=== PATIENT | female | born 1955 | race Caucasian/White ===

== ENCOUNTER 2022-09-18 12:50 | Outpatient (CLI) | payer MEDICARE, SELFPAY ==
--- NOTE | ~2022-09-18 | US_ITS ---
EXAMINATION: US venous doppler [facility] DATE: 09/18/2022 13:36 INDICATION: Lower limb swelling. TECHNIQUE: Grayscale ultrasound images without and with compression and Doppler ultrasound images of the bilateral lower extremity veins were obtained. COMPARISON: None. FINDINGS: The visualized portions of right common femoral vein, profunda (deep) femoral vein, femoral vein, pop liteal vein, peroneal veins, posterior tibial veins, and greater saphenous vein outflow are patent. The visualized portions of left common femoral vein, profunda femoral vein, femoral vein, popliteal v ein, peroneal veins, posterior tibial veins, and greater saphenous vein outflow are patent. IMPRESSION: 1. No deep venous thrombosis. Reviewed, dictated and finalized at location B.
== END 2022-09-18 12:51 | disposition home or self-care (01) ==
LOC: ANHIMG 12:57
PROVIDERS: PCP Nurse Practitioner Family; Visit Provider Internal Medicine Cardiovascular Disease
DX: M79.89 Other specified soft tissue disorders (principal); R60.9 Edema, unspecified; I89.0 Lymphedema, not elsewhere classified
CPT/HCPCS: 93970

== ENCOUNTER 2024-11-09 08:43 | Outpatient (CLI) | payer MEDICARE, SELFPAY ==
--- NOTE | 2024-12-06 11:47 | P.SLEEP_ITS ---
Sleep Study Date of Study: 11/09/24 Ordering Provider: Kameron Rea MD Interpreting Physician: Mulu Espino DO Sleep Study Type: Split Polysomnogram Height: 1.6 m Weight: 94.347 kg Body Mass Index: 36.8 Neck Circumference (inches): 16 [place]: 1 Reason for Sleep Study Suspicion for MARQUITA based on cardiac dysfunction Sleep History The patient is a 69-year-old female that had a sleep study ordered by her superintendent automotive for evaluation of sleep apnea. The patient rarely awakens from sleep short of breath. She frequently awakens at night with heartburn, belching or cough. She frequently snores but is rarely loud enough that others. She rarely has trouble sleeping when she has a cold. She denies waking up gasping for air throughout the night. She denies having breathing problems at night observed by herself or others. She occasionally sweats excessively at night. She frequently has heart palpitations or irregular heartbeats during the night. She rarely falls asleep during the day. She denies falling asleep while driving. She denies sleep paralysis, cataplexy and hypnagogic / hypnopompic hallucinations. She denies having trouble at school or work due to sleepiness. She denies feeling afraid of going to sleep. She denies having nightmares. She rarely remembers her dreams. She rarely has thoughts racing through her mind. She rarely feels sad or depressed. She occasionally has anxiety. She rarely has muscular tension. She denies noticing parts of her body jerk. She rarely kicks during the night. She denies having crawling and aching feelings in her legs and denies having leg pain during the night. She is constantly grinds her teeth during sleep but never awakens with morning jaw pain. She denies being bothered by pain during the day and denies being awakened by pain during the night. She rarely wakes up feeling stiff in the morning. She rarely wakes up with sore or achy muscles. She denies waking up with pain in the neck, spine and other joints. She goes to bed at 9:30 p.m. on weekdays and at 10:00 p.m. on the weekends. It sometimes takes her a long time to fall asleep. She wakes up twice throughout the night to urinate and is able to fall back asleep within 20-30 minutes. She wakes up at 4:30 a.m. on weekdays and at 6:00 a.m. on the weekends. She typically gets 8 hours of sleep per night. She will stay in bed for 10 minutes after waking up in the morning. She currently lives alone. She denies consuming any caffeinated beverages within 2 hours of bedtime. She denies engaging in physical exercise before bedtime. She will watch television before falling asleep. She denies taking naps in the afternoon or the evening. She consumes 2 caffeinated beverages per day. She denies tobacco, alcohol and recreational drug use. Sleep Procedure A full night split study using the Pressi multi-channel system recorded the standard physiologic parameters including EEG, EOG, submentalis EM G, anterior tibialis EMG, EKG, body position, nasal and oral airflow using nasal pressure sensor and thermistor.? Respiratory parameters of chest and abdominal movements were recorded with Respiratory Inductance Plethysmography belts. Oxygen saturation was recorded by pulse oximetry. Video monitoring was also performed. Sleep stages, periodic limb movements, and EEG arousals were scored in 30 second epochs according to the criteria of the AASM Scoring Manual. The Apnea-Hypopnea Index was calculated using CMS guidelines for definition of hypopnea with 4% O2 desaturations while scoring respiratory events. Sleep Architecture During the diagnostic portion of the study, the total recording time was 185.2 minutes. The total sleep time was 125.5 minutes. Sleep latency was 42.7 minutes.? REM sleep was not achieved during this portion of the study. Sleep Efficiency was 67.8%. The patient had 6 awakenings for an awakening index of 2.9. Wake after sleep onset time was 17.0 minutes. The patient spent 13.5 minutes, 10.8% of total sleep time in Stage N1. The patient spent 111.5 minutes, 88.8% in Stage N2. The patient spent 0.5 minutes, 0.4% in Stage N3. The patient spent 0.0 minutes, 0.0% in Stage REM sleep. At 12:48:50 AM the patient was placed on PAP treatment and was titrated at pressures ranging from 5 cm H20 up to 7 cm H20 with EPR of 2. During the treatment portion of the study, the total recording time was 288.2 minutes.? The total sleep time was 127.0 minutes. Sleep latency was 103.5 minutes. REM latency was 173.0 minutes. Sleep Efficiency was 44.1%. Wake after Sleep Onset time was 57.5 minutes. The patient spent 11.0 minutes, 8.7% of total sleep time in Stage N1. The patient spent 105.5 minutes, 83.1% in Stage N2. The patient spent 0.0 minutes, 0.0% in Stage N3. The patient spent 10.5 minutes, 8.3% in Stage REM. Respiratory Analysis During the diagnostic portion of the study, the patient had 10 hypopneas and 1 mixed apnea for an overall Apnea Hypopnea Index of 5.3 events per hour. The REM Apnea Hypopnea Index was 0. The NREM Apnea Hypopnea Index was 5.3. The patient h ad a Central Apnea Hypopnea Index of 0. There was no evidence of Heriberto-Sarah Respirations. During the treatment portion of the study, the patient had no respiratory events for an overall Apnea Hypopnea Index of 0 events per hour. The REM Apnea Hypopnea Index was 0. The NREM Apnea Hypopnea Index was 0. The patient had a Central Apnea Hypopnea Index of 0. There was no evidence of Heriberto-Sarah Respirations. The patient was started on CPAP 5 cm H2O and titrated to CPAP 7 cm H2O with EPR of 2. The patient was able to fall asleep starting on CPAP 7 cm H2O. The patient was able to achieve REM sleep starting on CPAP 7 cm H2O with EPR of 2. The patient was able to achieve a residual AHI less than 5 with both NREM and REM sleep on the final pressure setting. On CPAP 7 cm H2O with EPR of 2, the patient spent 53 minutes in NREM and 10.5 minutes in REM with no respiratory events, resulting in an AHI of 0. The patient had a sleep efficiency of 75.6% on this pressure setting. Arousals During the diagnostic portion of the study, there were a total of 28 arousals for an arousal index of 13.4.? There were 3 respiratory arousals for an index of 1.4. There were 3 periodic limb movement arousals for an index of 1.4.? There were 1 isolated limb movement arousal for an index of 0.5. There were 21 spontaneous arousals for an index of 10.0. During the treatment portion of the study, there were a total of 21 arousals for an index of 9.9.? There were 0 respiratory arousals for an index of 0. There were 8 periodic limb movement arousals for an index of 3.8.? There were 0 isolated limb movement arousals for an index of 0. There were 13 spontaneous arousals for an index of 6.1. Periodic Limb Movements During the diagnostic portion of the study, the patient had 13 isolated limb movements with an index of 6.2. The patient had 26 periodic limb movements with an index of 12.4. The patient had a total of 39 limb movements with a total limb movement index of 18.6. During the treatment portion of the study, the patient had 9 isolated limb movements with an index of 4.3. The patient had 83 periodic limb movements with an index of 39.2, which is elevated (normal < 15). The patient had a total of 92 limb movements with a total limb movement index of 43.5. Oximetry Data During the diagnostic portion of the study, the patient had an average oxygen saturation of 94.9% in wake with a minimum oxygen saturation of 83% and a maximum oxygen saturation of 98%. The patient had an average oxygen saturation of 92.2% in sleep with a minimum oxygen saturation of 87.0% and a maximum oxygen saturation of 98.0%. The patient had 37 oxygen desaturations resulting in an Oxygen Desaturation Index of 18.2. The patient spent 0.8 minutes, 0.5% of total sleep time with an oxygen saturation less than 88%. During the treatment portion of the study, the patient had an average oxygen saturation of 96.2% in wake with a minimum oxygen saturation of 92.0% and a maximum oxygen saturation of 99.0%. The patient had an average oxygen saturation of 93.8% in sleep with a minimum oxygen saturation of 90.0% and a maximum oxygen saturation of 98.0%. The patient had 15 oxygen desaturations resulting in an Oxygen Desaturation Index of 7.1. The patient spent 0 minutes of total sleep time with an oxygen saturation less than 88%. Snoring Profile Mild snoring was present in the baseline portion of the study. Cardiac Profile The EKG lead showed normal sinus rhythm with occasional PVCs. During the diagnostic portion of the study, the average pulse rate was 80.9 bpm.? The minimum pulse rate was 74.0 bpm. The maximum pulse rate was 89.0 bpm. During the treatment portion of the study, the average pulse rate was 82.1 bpm.? The minimum pulse rate was 75.0 bpm. The maximum pulse rate was 91.0 bpm. EEG Profile No signs of seizure activity seen. Assessment and Plan Assessment and Plan (1) MARQUITA (obstructive sleep apnea): Code(s): G47.33 - Obstructive sleep apnea (adult) (pediatric) Status: Acute Assessment and Plan: In the baseline portion of the study, the patient had an overall AHI of 5.3 with desaturation down to 87%. This is consistent with mild sleep apnea. The patient was started on CPAP 5 cm H2O and titrated to CPAP 7 cm H2O with EPR of 2. The p atient's sleep apnea resolved on the final pressure setting. I recommend that the patient be prescribed CPAP 7 cm H2O with EPR of 2, size medium Resmed AirTouch F20 full face mask, CPAP filters/tubing and heated humidity. This should be used with all episodes of sleep.? Compliance should be reviewed within 31-90 days of starting therapy for usage greater than 4 hours per night greater than 70% of the nights. The patient should be asked about symptoms such as?excessive daytime sleepiness, quality of sleep, decreased nocturia, increased?mental functioning such as memory, mood, and concentration. Data The data obtained during this sleep study is adequate for interpretation. Certification This sleep study has been reviewed by a board certified sleep medicine physician.
[2024-12-06 11:48] VITALS: BMI 36.8
== END 2024-11-10 07:01 | disposition home or self-care (01) ==
LOC: ANHCSM 08:44
PROVIDERS: PCP Nurse Practitioner Family; Visit Provider Internal Medicine Cardiovascular Disease
DX: G47.33 Obstructive sleep apnea (adult) (pediatric) (principal)
CPT/HCPCS: 95811

== ENCOUNTER 2025-03-31 15:34 | Outpatient (CLI) | payer MEDICARE, SELFPAY ==
--- NOTE | ~2025-03-31 | MM_ITS ---
EXAMINATION: MM screening tiffanie BI w micah HISTORY: Screening TECHNIQUE: Craniocaudal and mediolateral oblique 3-D tomosynthesis images were obtained and synthetic 2-D images were generated. CAD analysis was submitted and interpreted. COMPARISON: Comparison to multiple prior studies sequentially, with oldest reviewed study dated 08/31. BREAST PARENCHYMAL COMPOSITION: Not dense: There are scattered areas of fibroglandular density. FINDINGS: There is no evidence of suspicious mass, calcification, or architectural distortion to sugg est malignancy in either breast. There has been no suspicious interval change. IMPRESSION: 1. No mammographic evidence of malignancy. 2. Recommend routine screening mammography in one year. BI-RADS Category 1: Negative Reviewed, dictated and finalized at location A.
--- OUTSIDE RECORDS SUMMARY | 2025-03-31 15:51 | XMS_ITS | Clinical Summary ---
Author Organization [facility] [place] [address] Address [address] [place] [address] Care Team Providers Care Drywaller Name Role Phone Fab Marelle Mckenna ADJUSTER Primary Care Provider + Allergies No known active allergies Medications amitriptyline (ELAVIL) 50 mg tablet amitriptyline 50 mg tablet TAKE 1 TABLET BY MOUTH EVERY DAY 0 Active rosuvastatin (CRESTOR) 10 mg tablet rosuvastatin 10 mg tablet TAKE 1 TABLET BY MOUTH EVERY DAY 0 Active escitalopram (LEXAPRO) 10 mg tablet Take 1 tablet (10 mg total) by mouth daily 3 Active aspirin 81 mg enteric coated tablet Take 1 tablet (81 mg total) by mouth daily 4 Active sacubitriL-janine sartan (ENTRESTO) 97-103 mg tabletIndicati ons:chronic heart failure Take 1 tablet by mouth 2 (two) times a day 60 tablet 11 4 Active furosemide (LASIX) 40 mg tablet Take 1 tablet (40 mg total) by mouth daily 30 tablet 11 4 09/01/20 25 Active hydrALAZINE (APRESOLINE) 50 mg tabletIndicati ons:hypertensi on Take 1 tablet (50 mg total) by mouth 3 (three) times a day 90 tablet 11 4 09/01/20 25 Active omeprazole (PriLOSEC) 40 mg capsule Take 1 capsule (40 mg total) by mouth daily Active ivabradine (CORLANOR) 7.5 mg tablet Take 1 tablet (7.5 mg total) by mouth 2 (two) times a day 60 tablet 1 4 Active empagliflozin (Jardiance) 10 mg tablet TAKE 1 TABLET BY MOUTH EVERY DAY 30 tablet 10 4 Active metFORMIN XR (GLUCOPHAGE XR) 500 mg 24 hr tablet Take 1 tablet (500 mg total) by mouth daily 4 Active Ozempic 1 mg/dose (4 mg/3 mL) pen injector injection 4 Active dilTIAZem CD/XR/XT (CARDIZEM CD,DILACOR XR) 240 mg 24 hr capsule Take 1 capsule (240 mg total) by mouth daily 90 capsule 6 4 10/27/20 25 Active carvediloL (COREG) 25 mg tablet TAKE 1 TABLET BY MOUTH TWICE A DAY WITH FOOD 180 tablet 2 5 Active spironolactone (ALDACTONE) 25 mg tablet TAKE 1 TABLET (25 MG TOTAL) BY MOUTH DAILY. 90 tablet 2 5 01/04/20 26 Active Active Problems Problem Noted Date Diagnosed Date Inappropriate sinus tachycardia 09/29/2024 Primary hypertension 09/29/2024 Coronary artery disease invo lving [place] coronary artery of [place] heart without angina pectoris 09/29/2024 Morbid obesity 09/29/2024 Encounters Date Type Department Care Team Description 02/17/2025 Telephone [facility] Cardiology [address] [facility] [address] [place] [address] Kameron Rea MD from Last 3 Months Medical History Medical History Date Comments Hyperlipidemia Hypertension GERD (gastroesophageal reflux disease) Family History Medical History Relation Name Comments Cancer Other Hyperlipidemia Other Relation Name Status Comments Father Mother Other Social History Tobacco Use Types Packs/Day Years Used Date Smoking Tobacco: Never Tobacco Cessation:Counseling Given: Not Answered Comments Unknown Sex and Gender Information Value Date Recorded Sex Assigned at Not on file Legal Sex Female 12:22 AM DESPATCH CLERK Gender Identity Not on file Sexual Orientation Not on file Obstetrics History Last Filed Vital Signs Vital Sign Reading Time Taken Comments Blood Pressure 138/70 10/27/2024 10:19 AM DESPATCH CLERK Pulse 104 10/27/2024 10:19 AM DESPATCH CLERK Temperature - - Respiratory Rate - - Oxygen Saturation 96% 10/27/2024 10:19 AM DESPATCH CLERK Inhaled Oxygen Concentration - - Weight 95.8 kg (211 lb 1.6 oz) 10/27/2024 10:19 AM DESPATCH CLERK Height 160 cm (5' 3 ) 10/27/2024 10:19 AM DESPATCH CLERK Body Mass Index 37.39 10/27/2024 10:19 AM DESPATCH CLERK Plan of Treatment Health Maintenance Due Date Last Done Comments Albumin Creatinine Ratio, Urine 1956 Breast Cancer Screening-Mammogram 1956 Colon Cancer Screening-Colonoscopy 1956 Depression Screening 1956 Fall Risk Assessment 1956 Hemoglobin A1C 1956 Hepatitis C Screening 1956 Osteoporosis Screening-Bone Density Scan 1956 Dilated Eye Exam 1956 Foot Exam 1956 Hepatitis B Screening 02/02/1974 Well Visit 65+ 02/02/2021 Influenza Vaccine (#1) 2024 3, 09/24/2022, 09/21/2022, Additional history exists Lipid Panel 11/12/2024 11/12/2023, 11/12/2021 eGFR 11/27/2024 11/27/2023 DTaP/Tdap/Td Vaccine (3 - Tdap) 11/22/2031 , 06/05/2011 Zoster Vaccine Completed 05/14/2023, 01/29, 02/06/2016 Pneumococcal vaccine 65+ Completed 08/19/2023, 09/01 Procedures Procedure Name Priority Date/Time Associated Diagnosis Comments COMPREHENSIVE METABOLIC PANEL Routine 11/27/2023 Swelling of both lower extremities POCT LIPID PANEL Routine 11/12/2023 1:37 PM DESPATCH CLERK Lipid screening from Last 3 Months or Most Recently Relevant to Health Maintenance Results * (ABNORMAL) Comprehensive metabolic panel (11/27/2023) SCRIBED Sodium 140 137 - 145 mmol/L EXTERNAL LAB SCRIBED Potassium 4.0 3.5 - 5.1 mmol/L EXTERNAL LAB SCRIBED Chloride 100(A) 137 - 145 mmol/L EXTERNAL LAB SCRIBED Carbon Dioxide 32(A) 22 - 30 mmol/L EXTERNAL LAB SCRIBED Anion Gap 12.0(A) 14 - 22 mmol/L EXTERNAL LAB SCRIBED Urea Nitrogen (BUN) 15 8 - 19 mg/dl EXTERNAL LAB SCRIBED Creatinine 1.20 0.66 - 1.25 mg/dl EXTERNAL LAB SCRIBED Glucose 111(A) 70 - 99 mg/dl EXTERNAL LAB SCRIBED Calcium 10.0 8.4 - 10.2 mg/dl EXTERNAL LAB SCRIBED Bilirubin 0.60 0.20 - 1.30 mg/dl EXTERNAL LAB SCRIBED Plasma Protein 8.1 6.3 - 8.2 g/dl EXTERNAL LAB SCRIBED Albumin 4.7(A) 3.0 - 4.4 g/dl EXTERNAL LAB SCRIBED Alkaline Phosphatase 103 38 - 126 Units/L EXTERNAL LAB SCRIBED Alanine Transaminase (ALT) 13 0 - 35 Units/L EXTERNAL LAB SCRIBED Aspartate Transaminase (AST) 21 15 - 37 Units/L EXTERNAL LAB SCRIBED eGFR in 0 0 - 0 EXTERNAL LAB SCRIBED eGFR in NonAfrican [place]ian 45 45 - 45 EXTERNAL LAB Blood 11/27/2023 Kameron Rea MD LAB BLOOD ORDERABLES Final Resul t EXTERNAL LAB * POCT lipid panel (11/12/2023 1:37 PM DESPATCH CLERK) Cholesterol, POC 212 mg/dL HDL, POC 46 mg/dL Triglycerides, POC 185 mg/dL LDL Cholesterol POC 129 mg/dL Chol/HDL Ratio, POC 2.8 Non-HDL Cholesterol, POC 166 mg/dL Cholesterol Total, POC 212 mg/dL Capillary blood 11/12/2023 1 :37 PM DESPATCH CLERK Kameron Rea MD POINT OF CARE TEST ORDERABLES Fi nal Result from Last 3 Months or Most Recently Relevant to Health Maintenance Insurance MEDICARE MEDICARE [employer] SENIOR [facility] MEDICARE Care Teams Drywaller Relationship Specialty Start Date End Date Carrol Mar NP PCP - General Nurse Practitioner 06/18/22
--- OUTSIDE RECORDS SUMMARY | 2025-03-31 15:51 | XMS_ITS | CONTINUITY OF CARE DOCUMENT ---
Author Name cody, cody Address Unknown Organization [facility] Address [address] [place] [address] Phone [phone] Care Team Providers Care Sales Representative Leather Goods Name Role Phone Melo MENDOZA, Patt Unavailable [phone] Zaid TAB CUTTER-BC, Carrol Morgan Unavailable Zaid TAB CUTTER-BC, Carrol Cathy Unavailable [phone] PROBLEMS Condition Status Date Provider Notes Hyperlipidemia active Patt Alejo MD HYPERTENSION active Patt Alejo MD Ankle Edema, left > right active Patt alexis MD Abnormal EKG active Patt Alejo MD Cataract active Patt Alejo MD Cardiology examination active Patt cohen MD ENCOUNTERS Date Type Provider Location Encounter Diag nosis 1 - 8 In-person encounter Office Visit Patt Alejo MD [place] [facility] Cardiology examinationCataractAbnormal EKGAnkle Edema, left > rightHYPERTENSIONHyperlipidemia VITAL SIGNS Date Observation Value Provider Body Mass Index (Ratio) 37.05 kg/m2 Jose Alejo MD blood pressure, diastolic 113 mm[Hg] Fabiola nkLogic blood pressure, systolic 188 mm[Hg] Jennifer kLogic blood pressure, cuff size large Ta cem Adams blood pressure, diastolic 113 mm[Hg] Jose Adams blood pressure, systolic 188 mm[Hg] Aurelio Adams oxygen saturation, oximetry 95 % Alexandra Aadms respiratory rate E&M 20 /min Alexandra Adams pulse rate 111 /min Alexandra Adams weight E&M 209.2 [lb_av] Alexandra Adams height E&M 63 [in_i] Alexandra Adams HISTORY OF MEDICATION USE Medication Status Instructions Dates Provider Indications Com ments furosemide 20 mg tablet active TAKE 1 TABLET BY MOUTH TWICE DAILY Patt Alejo MD benazepril 40 mg tablet active Take 1 tablet by mouth twice a day Patt Alejo MD amitriptyline 50 mg tablet active 1 once a day Patt Alejo MD amlodipine 10 mg tablet active 1 once a day Patt Alejo MD atenolol 50 mg tablet active 1 once a day Patt Alejo MD rosuvastatin 10 mg tablet active 1 once a day Patt Alejo MD SOCIAL HISTORY Date Observation Value Provider social history reviewed E&M revi ewed - no changes required Patt Alejo MD social history E&M S moking History: P azael has never smoked. Patt Alejo MD INSURANCE PROVIDERS Payer name Policy type / Coverage type [place] [employer] party ID [employer] Commercial insurance compan y [employer]IOR [employer] Other [id number] [place] MEDICARE Medicare [id number] ADVANCE DIRECTIVES Name Date DISCUSSED - NO DECISION MADE TREATMENT PLAN Date Name Performer [id number],S, Patt art MD [id number],C,On statin. Edward Alejo MD [id number],C,P t is planned to undergo cataract surgery. L edema, no other symptoms. Clinical examination, apart from cataract, was unremarkable. The EKG done today showed sinus tachycardia. She is to undergo echocardiogram, if the EF and wall motion is normal we will clear her for surgery. Patt Alejo MD [id number],C,S he is on benazepril, amlodipine, and atenolol. Patt Alejo MD Cardiology Patt Lagos Cardiology:On statin. Patt alexis MD Cardiology:Pt is merced nned to undergo cataract surgery. L edema, no other symptoms. Clinical examination, apart from cataract, was unremarkable. The EKG done today showed sinus tachycardia. She is to undergo echocardiogram, if the EF and wall motion is normal we will clear her for surgery. Patt Alejo MD Cardiology:She is on benazepril, amlodipine, and atenolol. Ptat Alejo MD Date Name Complete Echo Complete Echo HISTORY OF PROCEDURES Procedure Date Procedure Name Provider Procedure Notes S tatus EKG Patt Alejo MD complet ed
--- OUTSIDE RECORDS SUMMARY | 2025-03-31 15:51 | XMS_ITS | Encounter Summary ---
Author Organization [facility] Healthcare Address [address] [place] [address] Care Team Providers Care Licensed Plumber Name Role Phone Carrol Mar NAME PLATE STAMPER Primary Care Provider + Encounter Details Date Type Department Care Team (Late st Contact Info) Description 11/09/2024 Orders Only [facility] [place] [facility] Information Management [address] [place] [id number] Kameron Rea MD [address] [id number] Social History Tobacco Use Types Packs/Day Years Used Date Smoking Tobacco: Never Comments Unknown Sex and Gender Information Value Date Recorded Sex Assigned at Not on file Legal Sex Female 12:22 AM CLINICAL SUPPORT SPECIALIST Gender Identity Not on file Sexual Orientation Not on file documented as of this encounter Plan of Treatment Not on file documented as of this encounter Procedures Procedure Name Priority Date/Time Associated Diagnosis Comments SLEEP LAB/STUDY - RESULT 11/09/2024 documented in this encounter Results * SLEEP LAB/STUDY - RESULT (11/09/2024) Kameron Rea MD Edited Result - Final documented in this encounter Visit Diagnoses Not on filedocumented in this encounter Care Teams Licensed Plumber Relationship Specialty Start Date End Date Carrol Mar NP PCP - General Nurse Practitioner 06/18/22 documented as of this encounter
--- OUTSIDE RECORDS SUMMARY | 2025-03-31 15:51 | XMS_ITS | Data Portability ---
Author Organization [facility] [employer], Main Office Address [address] [place] [address] Care Team Providers Care Radio Frequency Design Engineer Name Role Phone RAJNI THOMPSON Primary Care Provider [phone] Assessment No assessment recorded. Plan of Treatment Reminders Order Date Submit Date Provider Last Modified By Organization Details Last Modified Time Details Appointments Follow Up 15 2024 10:15A FIDELINA Nascimento Not available Not available Not available Lab hemoglob in A1C, fingerst ick 2024 025 [facility], [address] [place] [address], [address], 03/24/2025 12:01:26 TSH, serum, reflex free T4 [email or web address] [facility], [address] [place], [address], 08/15/2023 08:35:09 lipid panel, serum 2022 023 [facility], [address] [place], [address], 07/24/2023 20:55:51 BMP, serum or plasma 2022 023 [facility], [address] [place], [address], 07/24/2023 20:55:56 hepatic function panel, serum 2022 023 [facility], [address] [place], [address], 07/24/2023 20:55:58 HbA1c (hemoglo bin A1c), blood 2022 023 [facility], [address] [place], [address], 08/15/2023 08:35:09 pro BNP (pro B-type natriure tic peptide) , serum or plasma 2022 023 [facility], [address] [place], [address], 07/24/2023 20:56:01 Referral None recorded . Procedures None recorded . Surgeries None recorded . Imaging MAMMO, screenin g, digital, bilatera l [address] (Mammography), [address], [place], [address], 11/29/2024 09:22:39 MAMMO, screenin g, bilatera l [address] (Mammography), [address], [place], [address], 05/07/2024 09:08:51 MAMMO, screenin g, digital, bilatera l [address] (Imaging), [address] [facility] [address], [place], [address], 08/07/2023 09:54:50 Medication Orders Ozempic 0.25 mg or 0.5 mg (2 mg/3 mL) subcutan eous pen injector 2024 025 [facility], [address], [address], [place], [place], [id number], 03/24/2025 12:03:13 metformi n ER 500 mg tablet,e xtended release 24 hr 2023 [facility] [id number] [facility], [address] [place] [address], [address], 09/30/2024 11:40:03 Ozempic 0.25 mg or 0.5 mg (2 mg/3 mL) subcutan eous pen injector 2023 024 [facility] [address] [facility], [address] [place] [address], [address], 09/30/2024 11:40:03 amitript yline 50 mg tablet 2023 024 [facility] [address], [address], 04/22/2024 10:35:24 omeprazo le 40 mg capsule, delayed release 2023 024 [facility] [address] In [facility], [address] [place] [address], [address], 04/22/2024 10:38:29 escitalo pram 10 mg tablet 2023 024 [facility] [address], [address], 04/22/2024 10:35:24 furosemi de 20 mg tablet 2023 024 [facility] [address], [address], 09/30/2024 11:24:52 escitalo pram 10 mg tablet 2022 023 [facility] [address], [address], 07/24/2023 12:08:03 Patient TargetsNo targets recorded. Patient Instructions Encounter Date Encounter Id Patient Instructions Last Modified By Organization Details Last Modified Time 07/24/2023 [id number] FU in 2 mo for eval of bp, anxiety 6 mo fu htn, weight, swelling, insomnia, hyperlipidemia [email or web address] Not available 07/24/2023 12:16:11 Reason for Referral None Reported. Results Created Date Observation Date Name Description Value Unit Range Abnormal Flag Note LastModifiedBy Organization Detail LastModifiedTime 07/24/2007/24/2023 LIPID PANEL cholesterol 247 mg/dL 140-19 9 high NIH VALERIE NSUS RECOM MENDA TION FOR CAITLYN STERO L: ADULT CHILD LOW RISK: <200 <170 BORDE RLINE : <200- 239 ----- HIGH RISK: >240 >200 Not Available [facility] (Lab) [address] [place], [address], 07/24/2023 20:55:51 07/24/2007/24/2023 LIPID PANEL triglyceride s 160 mg/dL 0-150 high NIH VALERIE NSUS REPOR T RECOM MENDA TION FOR TRIGL YCERI SCHUYLER: ADULT CHILD LOW RISK: <150 ----- BODER LINE: 150-1 99 ----- HIGH RISK: >200 ----- Not Available [facility] (Lab) [address] [place], [address], 07/24/2023 20:55:51 07/24/2007/24/2023 LIPID PANEL HDL cholesterol 49 mg/dL 40- Not Available [facility] (Lab) [address] [place], [address], 07/24/2023 20:55:51 07/24/2007/24/2023 LIPID PANEL LDL cholesterol, calculated 166 mg/dL 0-130 high NIH VALERIE NSUS REPOR T RECOM MENDA TIONS FOR LDL: ADULT CHILD LOW RISK <130 <110 (OPTI MAL LDL) <100 ----- BORDE RLINE : 130-1 59 ----- HIGH RISK: >160 >130 A TRIGL YCERI DE RESUL T >400 INVAL IDATE S THE CALCU LATIO N FOR LDL FRACT IONAT ION - THE LDL RESUL T WILL NOT BE REPOR STEW. Not Available [facility] (Lab) [address] [place], [address], 07/24/2023 20:55:51 07/24/20 23 07/24/2023 BASIC METAB OLIC PANEL sodium 140 mmol/ L 137-14 5 Not Available [facility] (Lab) [address] [place], [address], 07/24/2023 20:55:56 07/24/20 23 07/24/2023 BASIC METAB OLIC PANEL potassium 4.2 mmol/ L 3.5-5. 1 Not Available [facility] (Lab) [address] [place], [address], 07/24/2023 20:55:56 07/24/20 23 07/24/2023 BASIC METAB OLIC PANEL chloride 100 mmol/ L 98-107 Not Available [facility] (Lab) [address] [place], [address], 07/24/2023 20:55:56 07/24/20 23 07/24/2023 BASIC METAB OLIC PANEL carbon dioxide 30 mmol/ L 22-30 Not Available [facility] (Lab) [address] [place], [address], 07/24/2023 20:55:56 07/24/20 23 07/24/2023 BASIC METAB OLIC PANEL anion gap 14.2 mmol/ L 14-22 Not Available [facility] (Lab) [address] [place], [address], 07/24/2023 20:55:56 07/24/20 23 07/24/2023 BASIC METAB OLIC PANEL glucose 102 mg/dL 70-99 high Not Available [facility] (Lab) [address] [place], [address], 07/24/2023 20:55:56 07/24/2007/24/2023 BASIC METAB OLIC PANEL BUN 15 mg/dL 8-19 Not Available [facility] (Lab) [address] [place], [address], 07/24/2023 20:55:56 07/24/2007/24/2023 BASIC METAB OLIC PANEL creatinine 0.92 mg/dL 0.66-1 .25 Not Available [facility] (Lab) [address] [place], [address], 07/24/2023 20:55:56 07/24/2007/24/2023 BASIC METAB OLIC PANEL GFR >60 Refer ence Range : Gardner ge GFR Healt hy Adult : >60 mL/mi n/1.7 3 m2 Chron ic Kidne y Disea se: 15-60 mL/mi n/1.7 3 m2 Kidne y Failu re: <15/m L/min /1.73 m2 www.n iddk. nih.g ov The MDRD study equat ion has not been valid ated in child shawn <18 years of age; pregn ant women ; the elder ly >85 years of age; or in some racia l or ethni c subgr oups, such as Satya nics. Outsi de the valid ated rajesh eters , estim ated GFR is less accur ate, requi ring clini yeison judgm ent on a case- by-ca se basis . Clini yeison inter preta tion for other races and ages must be made by the clini yeni. The MDRD study equat ion has not been valid ated for the evalu ation of serum creat inine relat ed to nutri claritza l statu s or medic ation usage . For perso ns <18 years of age, a pedia tric GFR calcu lator is avail able on the F websi te: https ://edgar w.mitzy tanner.o sae/pr isauroess ional s/kdo qi/gf r_cal culat or Not Available [facility] (Lab) [address] [place], [address], 07/24/2023 20:55:56 07/24/20 23 07/24/2023 BASIC METAB OLIC PANEL calcium 9.4 mg/dL 8.4-10 .2 Not Available [facility] (Lab) [address] [place], [address], 07/24/2023 20:55:56 07/24/20 23 07/24/2023 HEPAT IC/LI LILIANE PANEL alkaline phosphatase 124 U/L 38-126 Not Available [facility] (Lab) [address] [place], [address], 07/24/2023 20:55:58 07/24/2007/24/2023 HEPAT IC/LI LILIANE PANEL alanine aminotransfe rase 23 U/L 0-35 Not Available [facility] (Lab) [address] [place], [address], 07/24/2023 20:55:58 07/24/20 23 07/24/2023 HEPAT IC/LI LILIANE PANEL aspartate aminotransfe rase 26 U/L 15-37 Not Available [facility] (Lab) [address] [place], [address], 07/24/2023 20:55:58 07/24/20 23 07/24/2023 HEPAT IC/LI LILIANE PANEL bilirubin, total 0.40 mg/dL 0.20-1 .30 Not Available [facility] (Lab) [address] [place], [address], 07/24/2023 20:55:58 07/24/20 23 07/24/2023 HEPAT IC/LI LILIANE PANEL bilirubin, conjugated (direct) 0.00 mg/dL 0.00-0 .30 Not Available [facility] (Lab) [address] [place], [address], 07/24/2023 20:55:58 07/24/20 23 07/24/2023 HEPAT IC/LI LILIANE PANEL biliurubin,u ncong. (indirect) 0.40 mg/dL 0.00-1 .1 Not Available [facility] (Lab) [address] [place], [address], 07/24/2023 20:55:58 07/24/20 23 07/24/2023 HEPAT IC/LI LILIANE PANEL total protein 7.4 g/dL 6.3-8. 2 Not Available [facility] (Lab) [address] [place], [address], 07/24/2023 20:55:58 07/24/20 23 07/24/2023 HEPAT IC/LI LILIANE PANEL albumin 4.5 g/dL 3.0-4. 4 high Not Available [facility] (Lab) [address] [place], [address], 07/24/2023 20:55:58 07/24/20 23 07/24/2023 HEPAT IC/LI LILIANE PANEL globulin 2.9 g/dL 2.6-4. 2 Not Available [facility] (Lab) [address] [place], [address], 07/24/2023 20:55:58 07/24/20 23 07/24/2023 HEPAT IC/LI LILIANE PANEL A/G ratio 1.6 ratio 1.0-2. 0 Not Available [facility] (Lab) [address] [place], [address], 07/24/2023 20:55:58 07/24/2007/24/2023 NT-MA O BNP nt-pro BNP 495 pg/mL 0-221 high Not Available [facility] (Lab) [address] [place], [address], 07/24/2023 20:56:00 07/24/20 23 07/24/2023 HEMOG LOBIN A1C HA1C 5.7 % 4.0-6. 0 Diabe saskia Scree orquidea Crite haven: <5.7% Consi stent with absen ce of diabe saskia 5.7-6 .4% Consi stent with incre ased risk for diabe [place] (pred iabet es) >OR=6 .5% Consi stent with diabe [place] REFER ENCE: Diabe s[place] Care 2016, 39(Vergara ppl.1 ):s13 -s22 Not Available [facility] (Lab) [address] [place], [address], 07/24/2023 20:59:13 07/24/20 23 07/24/2023 TSH W/REF SMITHA FT4 TSH with reflex free T4 2.530 uIU/m L 0.465- 4.680 Not Available [facility] (Lab) [address] [place], [address], 07/24/2023 21:14:39 03/24/20 25 03/24/2025 hemog lobin A1C, finge rstic k HgbA1C 5.8 Not Available [facility]_[address], [address], 03/24/2025 11:04:47 01/06/20 24 12/31/2023 US, doppl er echoc ardio gram No observ ation record ed. [facility] [address] [place] [address] [address], [place], [address], 01/06/2024 16:54:23 Result Notes None recorded. Problems Name Problem SNOMED Code Status Onset Date Resolution Date Notes Provider Name and Address Organization Details Recorded Time Edema of lower extremity 201678204 Active 2020 Not Available [facility] 4 08:18:42 Electrocar diogram abnormal 891585171 Active 2021 Not Available [facility] 4 08:18:42 Insomnia 722982031 Active 2017 Not Available [facility] 4 08:18:42 Gastroesop hageal reflux disease 577159794 Active 2016 Not Available [facility] 4 08:18:42 Abdominal aortic bruit 633004134 Active Not Available [facility] 4 08:18:42 Edema 329905499 Completed 04/22/2024 Rajni Thompson, PHOTOVOLTAIC SOLAR CELL DESIGNER [address] [facility], [place], [address] , [place] [facility] 4 10:17:28 Renal bruit present 815886409 Active Not Available [facility] 4 08:18:42 Alkaline phosphatas e above reference range 115083422 Active 2016 labs , 03/2019 Not Available [facility] 4 08:18:42 Screening for disorder Active 2020 Not Available [facility] 4 08:18:42 Osteopenia 513710818 Active Not Available [facility] 4 08:18:42 Vitamin D deficiency 42028437 Active Not Available [facility] 4 08:18:42 Screening mammograph y of bilateral breasts Active 2020 Not Available [facility] 4 08:18:42 Osteoarthr itis 960227762 Active Not Available [facility] 4 08:18:42 Obese 655363698 Active 2020 Not Available [facility] 4 08:18:42 Femoral bruit 402265055 Active Not Available [facility] 4 08:18:42 Hyperlipid emia 15656909 Active Not Available [facility] 4 08:18:42 Verruca vulgaris 58664833 Active Not Available [facility] 4 08:18:42 Pain of joint 81065298 Active Not Available [facility] 4 08:18:42 Essential hypertensi on 88084910 Active Not Available [facility] 4 08:18:42 Hypercalce conrad 39560113 Active Not Available [facility] 4 08:18:42 Postmenopa usal state 07809247 Active 2020 Not Available [facility] 4 08:18:42 Hyperglyce cornad 78493486 Active 2021 Not Available [facility] 4 08:18:42 Administra tion of influenza vaccine Completed 202004/22/2024 FIDELINA Ibarra [address], [place], [address] , [facility] [employer] [facility] 4 10:17:20 Mixed anxiety and depressive disorder 483041385 Active 2022 Not Available [facility] 4 08:18:42 Prediabete s 961063177 Active 2023 FIDELINA Ibarra [address], [place], [address] , [employer] [facility] [employer] [facility] 4 11:36:47 Obstructiv e sleep apnea syndrome 96739055 Active 2024 FIDELINA Ibarra [address], [place], [address] , [facility] [email or web address] [facility] [employer] [facility] 5 12:01:08 Notes:Some problems listed i n Document: #[id number] could not be added to this patient's chart. Please review this document and add these problems to the patient's chart manually as needed. Problem Notes None recorded. Procedures Surgical History Date Name Laterality Status Provider Name and Address Organization Details Recorded Time 9 Most Recent Bone Density completed Not Available [facility] 01/29/2023 02:37:30 Imaging Results Imaging Date Name Status LastModified by Organization Details LastModified Time 12/31/2023 US, doppler echocardiogram completed [facility] [address] [facility] [address], [place], [address], 01/06/2024 16:54:23 Procedure Notes None recorded. Medical Equipment None Reported. Allergies Allergen ID Allergen Name Allergen Category Reaction Reaction Severity Criticality Documentation Date Start Date Code Code System Note Provider Name and Address Organization Details Recorded Time 34926 barley extract food swelling moderate Not available 07/24/2023 10321 66 RxNorm Not Available [facility] 3 11:39:29 No known drug allergies Medications Name Sig Start Date Stop Date Status Note LastModified by Organization Details LastModified Time furosemid e 40 mg tablet TAKE 1 TABLET BY MOUTH EVERY DAY active Not Available Not Available No t Available atorvasta tin 40 mg tablet Take 1 tablet every day by oral route at bedtime for 30 days. 03/23 completed DOSE INCREASE D Not Available Not Available Not Available atorvasta tin 80 mg tablet TAKE 1 TABLET Nightly active Not Available Not Available No t Available carvedilo l 25 mg tablet TAKE 1 TABLET BY MOUTH TWICE A DAY WITH FOOD active Not Available Not Available No t Available carvedilo l 6.25 mg tablet TAKE 1 TABLET BY MOUTH TWICE A DAY WITH MEALS 04/22 completed Not Available Not Available Not Available diltiazem ER (XR/XT) 240 mg capsule,e xtended release 24 hr, controlle d TAKE 1 CAPSULE BY MOUTH EVERY DAY active Not Available Not Available No t Available metoprolo l succinate ER 50 mg tablet,ex tended release 24 hr Take 1 tablet every day by oral route. active Not Available Not Available No t Available hydrocodo ne 5 mg-acetam inophen 325 mg tablet 12/22 completed Not Available Not Available Not Available nifedipin e ER 30 mg tablet,ex tended release TAKE 1 TABLET BY MOUTH NIGHTLY 04/22 completed Not Available Not Available Not Available omeprazol e 40 mg capsule,d elayed release TAKE 1 CAPSULE BY MOUTH EVERY DAY DIRECTED active Not Available Not Available No t Available aspirin 81 mg tablet,de layed release Take 1 tablet every day by oral route. 2023 active Not Available Not Available Not Avai lable amitripty line 50 mg tablet TAKE 1 TABLET BY MOUTH EVERY DAY active Not Available Not Available No t Available spironola ctone 25 mg tablet TAKE 1 TABLET (25 MG TOTAL) BY MOUTH DAILY. active Not Available Not Available No t Available ketorolac 0.5 % eye drops INSTILL 1 DROP INTO THE LEFT EYE 3 TIMES A DAY BEGINNIN G 3 DAYS BEFORE THE SURGERY 12/03 completed Not Available Not Available Not Available pravastat in 80 mg tablet TAKE 1 TABLET NIGHTLY 04/10 completed Not Available Not Available Not Available amitripty line 25 mg tablet TAKE 1 TABLET NIGHTLY NEEDED FOR SLEEP active Not Available Not Available No t Available prednisol one acetate 1 % eye drops,jemma pension INSTILL 1 DROP INTO LEFT EYE 3 TIMES A DAY BEGINRENAE G THE DAY AFTER SURGERY 12/03 completed Not Available Not Available Not Available amlodipin e 10 mg tablet TAKE 1 TABLET BY MOUTH EVERY DAY 04/22 completed Not Available Not Available Not Available ranitidin e 150 mg tablet Take 1 tablet twice a day by oral route. 04/22 completed Not Available Not Available Not Available benazepri l 20 mg tablet Take 1 tablet twice a day by oral route for 30 days. 06/21 completed Not Available Not Available Not Available hydralazi ne 50 mg tablet TAKE 1 TABLET BY MOUTH THREE TIMES A DAY active Not Available Not Available No t Available furosemid e 20 mg tablet TAKE 2 TABLETS BY MOUTH ONCE DAILY NEEDED. 09/30 completed Not Available Not Available Not Available ergocalci ferol (vitamin D2) 1,250 mcg (50,000 unit) capsule TAKE 1 CAPSULE BY MOUTH ONCE A WEEK 03/24 completed Not Available Not Available Not Available benazepri l 40 mg tablet TAKE 1 TABLET BY MOUTH TWICE A DAY 04/22 completed Not Available Not Available Not Available metformin ER 500 mg tablet,ex tended release 24 hr TAKE 1 TABLET BY MOUTH EVERY DAY DIRECTED active Not Available Not Available No t Available atenolol 50 mg tablet TAKE 1 TABLET BY MOUTH EVERY DAY 04/22 completed Not Available Not Available Not Available escitalop jocelin 10 mg tablet TAKE 1 TABLET BY MOUTH EVERY DAY active Not Available Not Available No t Available ezetimibe 10 mg tablet TAKE 1 TABLET DAILY active Not Available Not Available No t Available rosuvasta tin 10 mg tablet TAKE 1 TABLET BY MOUTH EVERY DAY 04/22 completed Not Available Not Available Not Available rosuvasta tin 20 mg tablet TAKE 1 TABLET BY MOUTH EVERY DAY active Not Available Not Available No t Available rosuvasta tin 40 mg tablet 1 tab po nightly active Not Available Not Available No t Available Bystolic 10 mg tablet Take 1 tablet every day by oral route. 04/10 completed Not Available Not Available Not Available Bystolic 5 mg tablet 12/22 completed Not Available Not Available Not Available Vimovo 500 mg-20 mg tablet,im mediate and delay release TAKE 1 TABLET TWICE A DAY active Not Available Not Available No t Available gatifloxa shital 0.5 % eye drops INSTILL ONE DROP INTO THE RIGHT EYE 3 TIMES A DAY 12/03 completed Not Available Not Available Not Available Atelvia 35 mg tablet,de layed release Take 1 tablet every week by oral route. 10/11 completed Not Available Not Available Not Available Jardiance 10 mg tablet TAKE 1 TABLET BY MOUTH EVERY DAY active Not Available Not Available No t Available ivabradin e 5 mg tablet TAKE 1 TABLET BY MOUTH TWICE A DAY 03/24 completed Not Available Not Available Not Available ivabradin e 7.5 mg tablet TAKE 1 TABLET BY MOUTH 2 TIMES A DAY. active Not Available Not Available No t Available Entresto 97 mg-103 mg tablet TAKE 1 TABLET BY MOUTH TWICE A DAY active Not Available Not Available No t Available Entresto 49 mg-51 mg tablet TAKE 1 TABLET BY MOUTH TWICE A DAY 09/30 completed Not Available Not Available Not Available Ozempic 1 mg/dose (4 mg/3 mL) subcutane ous pen injector Inject by subcutan eous route for 28 days. active Not Available Not Available No t Available Ozempic 0.25 mg or 0.5 mg (2 mg/3 mL) subcutane ous pen injector Inject 0.25 mg every week by subcutan eous route as directed for 28 days. 2024 active Not Available Not Available Not Avai lable Vitals Date Recorded Body mass index (BMI) Body height Oxygen saturation Oxygen saturation in Arterial blood by Pulse oximetry Heart rate Respiratory rate Body temperature Body weight Systolic blood pressure Diastolic blood pressure Provider Name and Address Organization Details Last Updated DateTime 3 37.2 kg/m2 160.02 cm 98 % 98 % 104 /min 16 /min 97.7 [degF] 95719.4 g 138 mm[Hg] 88 mm[Hg] Not Available [facility] 3 02:38:29 Date Recorded Body height Body mass index (BMI) Body weight Body temperature Heart rate Oxygen saturation Oxygen saturation in Arterial blood by Pulse oximetry Systolic blood pressure Diastolic blood pressure Provider Name and Address Organization Details Last Updated DateTime 3 160.02 cm 36.2 kg/m2 96756.8 9 g 98.4 [degF] 115 /min 97 % 97 % 211 mm[Hg] 112 mm[Hg] Ashley Callahan MA [facility] [employer] [facility] 3 11:38:03 Date Recorded Systolic blood pressure Diastolic blood pressure Provider Name and Address Organization Details Last Updated DateTime 07/24/2023 188 mm[Hg] 110 mm[Hg] Carrol Mar NP [address] [facility] [facility] [address], [place], [address], [facility] [employer] [facility] 07/24/2023 12:03:40 Date Recorded Body height Body mass index (BMI) Body weight Body temperature Respiratory rate Pain severity - 0-10 verbal numeric rating [Score] - Reported Oxygen saturation Oxygen saturation in Arterial blood by Pulse oximetry Heart rate Provider Name and Address Organization Details Last Updated DateTime 4 160.02 cm 37.6 kg/m2 42297.6 8 g 96.1 [degF] 20 /min 0 92 % 92 % 74 /min Carrol Hewitt RN [facility] [employer] [facility] 4 10:10:30 Date Recorded Systolic blood pressure Diastolic blood pressure Provider Name and Address Organization Details Last Updated DateTime 04/22/2024 140 mm[Hg] 90 mm[Hg] FIDELINA Ibarra [address] [facility], [facility] [address], [place], [address], [facility] [employer] [facility] 04/22/2024 10:20:35 Date Recorded Body height Body mass index (BMI) Body weight Body temperature Heart rate Respiratory rate Oxygen saturation Oxygen saturation in Arterial blood by Pulse oximetry Pain severity - 0-10 verbal numeric rating [Score] - Reported Systolic blood pressure Diastolic blood pressure Provider Name and Address Organization Details Last Updated DateTime 4 160.02 cm 38.3 kg/m2 20799.0 5 g 97.3 [degF] 105 /min 20 /min 95 % 95 % 0 182 mm[Hg] 92 mm[Hg] Carrol Hewitt RN [facility] [employer] [facility] 4 11:27:54 Date Recorded Body height Body mass index (BMI) Body weight Body temperature Respiratory rate Pain severity - 0-10 verbal numeric rating [Score] - Reported Oxygen saturation Oxygen saturation in Arterial blood by Pulse oximetry Heart rate Systolic blood pressure Diastolic blood pressure Provider Name and Address Organization Details Last Updated DateTime 5 160.02 cm 34.9 kg/m2 05614.0 5 g 97.5 [degF] 24 /min 0 96 % 96 % 107 /min 180 mm[Hg] 120 mm[Hg] Carrol Hewitt RN [place] [facility] [place] [employer] [facility] 5 10:54:34 Social History Question Answer Notes LastModified by Organization Details LastModified Time Tobacco Smoking Status Never Smoker Not Available [employer] 01/29/2023 02:29:16 Do You Have An Advance Directive? Yes Juana Sheridan Information not available 04/22/2024 What Is Your Level Of Alcohol Consumption? None MIGRATION.030 [id number] Information not available 01/29/2023 Are You Blind Or Do You Have Difficulty Seeing? No Information not available 04/22/2024 What Is Your Level Of Caffeine Consumption? Occasional MIGRATION.030 [id number] Information not available 01/29/2023 What Is Your Code Status? DNR Information not available 04/22/2024 In The 14 Days Before Symptom Onset, Have You Had Close Contact With A Laboratory-confi rmed COVID-19 While That Case Was Ill? No MIGRATION.030 [id number] Information not available 01/29/2023 In The 14 Days Before Symptom Onset, Have You Had Close Contact With A Person Who Is Under Investigation For COVID-19 While That Person Was Ill? No MIGRATION.030 [id number] Information not available 01/29/2023 Are You Currently Employed? No Information not available 04/22/2024 Are You Deaf Or Do You Have Serious Difficulty Hearing? No Information not available 04/22/2024 What Type Of Diet Are You Following? REGULAR MIGRATION.030 [id number] Information not available 01/29/2023 What Is The Highest Grade Or Level Of School You Have Completed Or The Highest Degree You Have Received? [id number] [id number] Information not available 01/29/2023 What Is Your Occupation? Retired Information not available 04/22/2024 Have There Been Any Changes To Your Family Or Social Situation? Yes Passed 12/2020 MIGRATION.030 [id number] Information not available 01/29/2023 Where Do You Live? [place]LevelHouse MIGRATION.030 [id number] Information not available 01/29/2023 Do You Have A Medical Power Of Testing Specialist? Yes Information not available 04/22/2024 How Many Children Do You Have? 2 Information not available 04/22/2024 Do You Have Any Pets? No MIGRATION.0301 [id number] Information not available 01/29/2023 What Is Your Relationship Status? Dec 2021 Of 50 Years Passed From Covid MIGRATION.030 [id number] Information not available 01/29/2023 Do You Have Smoke And Carbon Monoxide Detectors In Your Home? Yes MIGRATION.0301 [id number] Information not available 01/29/2023 Are You Passively Exposed To Smoke? No MIGRATION.0301 [id number] Information not available 01/29/2023 Are There Any Smokers In Your House? No MIGRATION.0301 [id number] Information not available 01/29/2023 Do You Participate In Social Media? Yes MIGRATION.030 [id number] Information not available 01/29/2023 Do You Feel Stressed (tense, Restless, Nervous, Or Anxious, Or Unable To Sleep At Night)? [id number] MIGRATION.030 [id number] Information not available 01/29/2023 Have You Recently Traveled Abroad? No Information not available 04/22/2024 Sex: Unknown Functional Status Question Answer Note LastModified by Organizat ion Details LastModified Time Do you have difficulty walking or climbing stairs? Yes edema to feet Information not available 04/22/2024 Do you have transportation difficulties? No Information not available 04/22/2024 Are you able to walk? YESWOREST Information not available 04/22/2024 Do you have difficulty doing errands alone? No Information not available 04/22/2024 Are you able to care for yourself? Yes Information n ot available 04/22/2024 Do you have difficulty dressing or bathing? No Information not available 04/22/2024 Mental Status Question Answer Note LastModified by Organization D etails LastModified Time Do you have difficulty concentrating, remembering or making decisions? No Information no t available 04/22/2024 Family History Relationship Description Onset Age of this Age Resolved Age Notes LastModified by Organization Details LastModified Time Unspecified Relation Family history of malignant neoplasm [id number] Not available 01/29/2023 02:37:41 Medical History Condition Response BLINDNESS N RHEUMATIC FEVER N KIDNEY STONES N BLADDER PROBLEMS N MRSA N OTHER # 1 N POLIO N LUNG DISEASE/DISORDER N RADIATION / CHEMOTHERAPY N COPD N Other # 2 N BLOOD DISEASES N SURGERY N EAR OR HEARING PROBLEMS N MUMPS N BOWEL PROBLEMS N FEMALE PROBLEMS / INFECTIONS N DEPRESSION (INCLUDING POST ) N STROKE/TIA N THYROID DISEASE N ULCERS N BENIGN PROSTATIC HYPERPLASIA N MEASLES N CERVICALGIA N TB SKIN TEST N MYOCARDIAL INFARCTION N PARAPELGIA N OBESITY N GERD/NAUSEA N ANEURYSM N URINARY/BLADDER/KIDNEY PROBLEMS N CORONARY ARTERY DISEASE (CAD) N MENIERE'S DISEASE N ADDICTION CONCERNS N ENDOMETRIOSIS N USE OF BLOOD THINNERS N SKIN PROBLEMS N EMPHYSEMA N GASTROINTESTINAL DISORDER N MUSCLE,JOINT OR BONE PROBLEMS N GASTROINTESTINAL BLEEDING N BLOOD CLOTS N ASTHMA N CATARACTS N ERECTILE DYSFUNCTION N GI PROBLEMS N CHF N Low Testosterone N NEUROPATHY N INFERTILITY N AIDS/HIV N FRACTURES N CHEMOTHERAPY / RADIATION N VISION/EYE PROBLEMS N LIVER DISEASE N MALE HYPOGONADISM N HYPERTENSION Y ANXIETY DISORDER Y BLOOD TRANSFUSION N ANEMIA/BLOOD DISORDER N CHRONIC EAR INFECTIONS N BRONCHITIS N TUBERCULOSIS N GLAUCOMA N FOOT PROBLEM N DIVERTICULITIS N CHICKENPOX N SLEEP APNEA N ALLERGIES/HAYFEVER N INFECTIOUS DISEASE N HEART ARRHYTHMIA N PROSTATE N INSOMNIA N HIGH CHOLESTEROL / HYPERLIPIDEMIA N HYPERTHYROIDISM N EYE PROBLEMS N EATING DISORDER N NEUROLOGICAL PROBLEMS N EDEMA N CHRONIC PAIN SYNDROME N HYPOTHYROIDISM N CAROTID BLOCKAGE N CONSTIPATION N BACK / NECK PROBLEMS N HAVE YOU BEEN HOSPITALIZED OR SEEN IN [facility] IN THE PAST YEAR ? N ATHEROSCLEROSIS N BREAST PROBLEMS N DIALYSIS N ECZEMA N FIBROMYALGIA N OSTEOPOROSIS N ARTHRITIS N NO SIGNIFICANT PAST MEDICAL HISTORY N APPENDICITIS N DIABETES, TYPE N BAD TEETH N HEARTBURN / REFLUX N ADD/ADHD N AUTISM SPECTRUM DISORDER (ASD) N HEPATITIS / LIVER DISEASE N PULMONARY DISEASE N GOUT N SLEEP DISORDER N ALZHEIMER'S DISEASE N PAIN N HERPES N DEMENTIA N HEADACHES/MIGRAINES N SEIZURES/EPILEPSY N VASCULAR DISEASE N PACEMAKER N DIZZINESS N HEART DISEASE/HEART PROBLEMS Y KIDNEY DISEASE N DEVELOPMENTAL OR BEHAVIORAL DISORDERS N MULTIPLE SCLEROSIS N SCARLET FEVER N MENTAL DISORDER/ILLNESS N CARDIAC ARRHYTHMIA N CANCER: SPECIFY N PNEUMONIA N ATRIAL FIBRILLATION N Gall Stones N PULMONARY EMBOLISM N AUTOIMMUNE DISEASE N Gynecological History Statement/Question Response Date of Last Pap Date of Last Pap Smear Date of Last Colonoscopy Most Recent Mammogram Most Recent Bone Density 02/01/2019 Obstetrics History GPAL:G 0 P 0 0 0 0 Immunizations Vaccine Type Date Status Note Provider Nam e and Address Organization Details Recorded Time influenza nasal, unspecified formulation 2 completed Not Available [facility] 12/24/2023 08:18:43 DTaP 1 completed Not Available [facility] 12/24/2023 08:18:43 Influenza, high-dose, quadrivalent, PF 1 completed Not Available [facility] 12/24/2023 08:18:42 Influenza, high-dose, quadrivalent, PF 1 completed Not Available [facility] 12/24/2023 08:18:42 Influenza, split virus, quadrivalent, PF 9 completed Not Available [facility] 12/24/2023 08:18:43 Influenza, split virus, quadrivalent, preservative 6 completed Not Available [facility] 12/24/2023 08:18:42 zoster live 6 completed Not Available [facility] 12/24/2023 08:18:43 Td (adult), 5 Lf tetanus toxoid, preservative free, adsorbed 1 completed Not Available [facility] 12/24/2023 08:18:43 Influenza, split virus, trivalent, preservative 4 completed Not Available [facility] 12/24/2023 08:18:43 Pneumococcal conjugate PCV20, polysaccharide UDP273 conjugate, adjuvant, PF 3 completed Carrol Hewitt RN [place] [email or web address] [facility] [employer] 03/24/2025 10:45:42 Respiratory syncytial virus (RSV) MAB, unspecified 3 completed Not Available [facility] 12/24/2023 08:18:43 SARS-COV-2 (COVID-19) vaccine, UNSPECIFIED 3 completed Not Available [facility] 12/24/2023 08:18:42 zoster recombinant 3 completed FIDELINA Ibarra [address] [facility], [facility] [address], [place], [address], [facility] [employer] 04/22/2024 10:30:28 Past Encounters Encounter ID Performer Location Encounter Start Date Encounter Closed Date Diagnosis/Indication Diagnosis SNOMED-CT Code Diagnosis ICD10 Code Diagnosis Note [id number] Royer Bernardo MD [facility] [address] [place] [address] 02/27/2021 00:00:00 02/27/2021 17:04:39 [id number] Royer Bernardo MD [facility] [address] [place] [address] 03/07/2021 00:00:00 03/07/2021 18:48:20 [id number] Royer Bernardo MD [facility] [address] [place] [address] 04/10/2021 00:00:00 04/10/2021 16:51:40 [id number] Royer Bernardo MD [facility] [address] [place] [address] 06/13/2021 00:00:00 06/13/2021 16:33:05 [id number] Royer Bernardo MD [facility] [address] [place] [address] 11/22/2021 00:00:00 11/22/2021 10:27:13 [id number] Royer Bernardo MD [facility] [address] [place] [address] 04/10/2022 00:00:00 04/10/2022 12:10:08 [id number] Carrol Mar NP [facility] [address] [place] [address] 07/02/2022 00:00:00 07/02/2022 10:55:00 [id number] Royer Bernardo MD [facility] [address] [place] [address] 12/03/2022 00:00:00 12/03/2022 11:04:44 [id number] Carrol Mar NP [address] [address] 07/24/2023 11:25:51 07/24/2023 12:20:36 Essential hypertension 51187148 I10 Amlodipine 10 mg po daily.< 2 gm sodium diet.Ateno lol 50 mg po daily.Boligee zepril 80 mg po daily.ASA 81 mg po daily.Need s to fu with cardiologi st at [facility] today. Pt verbalized understand ing. Obese 423214165 E66.9 Diet and exercise encouraged to reduce BMI Hyperlipidemia 84082174 E78.5 Rosuvastat in 10 mg po nightly.Lo w fat diet. Edema 342884308 R60.9 Furosemide 20 mg, 2 tab po daily prn. Insomnia 657892617 G47.0 0 Amitriptyl ine 50 mg po nightly. Gastroesop hageal reflux disease 502124815 K21.9 Ranitidine 150 mg po daily. Diet mods. Vitamin D deficiency 347 25945 E55.9 vit d 50,000 IU po weekly. Mixed anxi ety and depressive disorder 891903223 F41.8 escitalopr am 10 mg po daily. Maybe tachycardi a and htn is result of excess anxiety. Screening for malignant neoplasm of breast 112211768 Z12.39 [id number] Royer Bernardo MD [address] [address] 04/22/2024 09:58:57 04/22/2024 10:39:32 Edema 207883432 R60.9 Mixed anxi ety and depressive disorder 365388529 F41.8 Insomnia 383029851 F51.0 1 Screening mammography 24 384014 Z12.31 Gastroesop hageal reflux disease 952871834 K21.9 [id number] Royer Bernardo MD [address] [address] 09/30/2024 11:08:00 09/30/2024 11:54:04 Essential hypertension 47875169 I10 Managed by cardio, controlled today Prediabetes 157474013 R7 3.03 Screening mammography 24 531301 Z12.31 [id number] FIDELINA Ibarra [facility] [address] [place] [address] 03/24/2025 10:32:01 03/24/2025 11:36:55 Prediabetes 098817686 R73.03 Would like to get back on Ozempic,Sa mple given in office Essential hypertension 52092130 I10 Managed by cardio, uncontroll ed todayAdvis ed to continue home BP log and FU with cardio as recommende d Obstructiv e sleep apnea syndrome 17252321 G47.33 Has appt tomorrow with sleep medicine at [facility] Section Related Observation LastModified by Organization Detai ls LastModified Time None Recorded Concern Status LastModified by Organization Details LastModified Time None Recorded Advance Directives Directive Y: Juana Sheridan Payers Encounter Date Sequence Insurance Name Policy Number Policy Biggs Covered Member ID Biggs Member ID Guarantor Name 07/24/2023 1 [place] Jayne E Schaumburg [id number] 1 Jayne Arvin 07/24/2023 2 [employer] (MEDICARE SUPPLEMENT) Jayne E Schaumburg [id number] Jayne Schaumburg 04/22/2024 1 [place] Jayne E [place] [id number] 1 Jayne Schaumburg 04/22/2024 2 [employer] (MEDICARE SUPPLEMENT) Jayne E Arvin [id number] Jayne Schaumburg 09/30/2024 1 [place] Jayne E [place] [id number] 1 Jayne Arvin 09/30/2024 2 [employer] (MEDICARE SUPPLEMENT) Jayne E Schaumburg [id number] Jayne Schaumburg 03/24/2025 1 [place] Jayne E [place] [id number] 1 Jayne Arvin 03/24/2025 2 [employer] (MEDICARE SUPPLEMENT) Jayne E Schaumburg [id number] Jayne Livingstonart Notes Date Note Type Note Provider Name and Address Organization Details Recorded Time 07/24/2023 text/html Here for 7 mo ch mariela up HTN- Home bp yesterday 160/97. No cp, muro, or blurred vision. Today feeling a little off. Has some anxiety. Watching grandkids and getting them off to school. Feeling on edge and not trying to be mean. Went to tattoo [facility] [employer] last year.Weight- Down 6 lbs from last time.Lipid- Due for labs to be checked. tries to eat low carb, low fat.Edema- swelling in feet. Still on 40 mg lasix.Insomnia- using amitriptyline to sleep.GERD- using otc meds routinely. Labs ordered 12/2022 not done.Mammogram ordered 12/2022 not done.Cologuard 12/22/22 negative.Dexa 02/01/19 ok per patient. Carrol Mar NP [address] [facility], [facility] [address], [place], [address], [facility] [employer] [facility] 07/24/2023 12:17:16 04/22/2024 text/html Jayne Sheridan is a 69 year old female patient here today to transition care. She was previously under the care of Carrol Mar DNP. Her medical history is significant for hypertension. This is managed by cardio. Her BP on arrival is 140/90. Her BP is running 140s/80s at home. She is currently taking carvedilol 50 mg PO BID, She has a history of hyperlipidemia. Her last lipid panel (07/24/2023) showed total cholesterol 247, triglycerides 160, LDL 166. She is currently taking rosuvastatin 20 mg PO daily, this was increased from 10 mg after the elevated lab. Will recheck with cardio in august. She has heart failure. This is managed by cardio. She is currently taking entresto and jardiance She has lower extremity edema. She takes furosemide 20 mg PO daily. She has mixed anxiety and depression. She is taking escitalopram 10 mg PO daily. She has issues with sleep. She takes amitriptyline 50 mg PO HS for this. She feels that this helps. She has concerns with acid reflux. She notices this worse at night. She will occasionally vomit from this. She does annual labs with cardiology. She sees cardiology again in august. Flu shot: OVID vaccines: 12/2021, 01/2022, 05/2022, 08/2022, 10/2023Tdap: hingles: 01/2016, neumococcal : PCV 20 (08/2023)Mammogram: overdue, ordered todayColonoscopy: cologuard 2022 negative FIDELINA Ibarra [address] [facility], [place], [address], [facility] [employer] 04/22/2024 10:43:18 09/30/2024 text/html Jayne Sheridan is a 69 year old female patient here today for a blood pressure check. Her medical history is significant for hypertension. This is managed by cardio. Her BP on arrival is 182/92 recheck 142/78, yesterday at cardiology was 160/58. Her BP is running 140s/80s at home. She is currently taking carvedilol 50 mg PO BID, hydralazine 50 mg TID Prediabetes, would like to discuss blood sugar management and possible weight loss options. Interested in GLP-1 She has lower extermity edema Has sleep study scheduled. Flu shot: OVID vaccines: 12/2021, 01/2022, 05/2022, 08/2022, 10/2023, 08/2024Tdap: hingles: 01/2016, neumococcal : PCV 20 (08/2023)Mammogram: overdue, ordered todayColonoscopy: cologuard 2022 negative FIDELINA Ibarra [address] [facility], [facility] [address], [place], [address], [facility] [email or web address] [facility] [employer] 09/30/2024 11:48:56 03/24/2025 text/html Jayne Sheridan is a 69 year old female patient here today for a 6 month FU Her medical history is significant for hypertension. This is managed by cardio. Her BP on arrival is 180/120. Her BP is running 140s/80s at home. She is currently taking carvedilol 50 mg PO BID, dilriazem, hydralazine She has heart failure. This is managed by cardio. She is currently taking entresto and jardiance She has prediabetes, notes diabetic symptoms. She was taking Ozempic and this had her blood sugars controlled then insurance declined her refill, since then her home sugars have been higher. She has issues with sleep. She takes amitriptyline 50 mg PO HS for this. She feels that this helps.She was recently diagnosed with sleep apnea, has an appt tomorrow with sleep medicine. Flu shot: OVID vaccines: 12/2021, 01/2022, 05/2022, 08/2022, 10/2023, 2023Tdap: hingles: 01/2016, neumococcal : PCV 20 (08/2023)Mammogram: scheduled for March 31Colonoscopy: cologuard 2022 negative Rajni Thompson, [employer]OTOVOLTAIC [employer] [address] [facility], [facility] [address], [place], [address], [place] [facility] [place] [facility] 03/24/2025 12:01:41 OBGyn Episode No OBEpisode recorded.
--- OUTSIDE RECORDS SUMMARY | 2025-03-31 15:51 | XMS_ITS | Referral Summary ---
Author Organization [facility] [address] Address [address] [place] [address] Care Team Providers Care Baggage Smasher Name Role Phone Carrol Mar Mckenna GUARD RAIL INSTALLER Primary Care Provider + Encounters Date Type Department Care Team Description 02/17/2025 Telephone [facility] Medical [facility] Cardiology [address] [place] [address] Kameron Rea MD from Last 3 Months Allergies No known active allergies Medications amitriptyline [...] hypertension 09/29/2024 Coronary artery disease invo lving [place] coronary artery of [place] heart without angina pectoris 09/29/2024 Morbid obesity 09/29/2024 Social History Tobacco Use Types Packs/Day Years Used Date Smoking Tobacco: Never Tobacco Cessation:Counseling Given: Not Answered Comments Unknown Sex and Gender Information Value Date Recorded Sex Assigned at Not on file Legal Sex Female 12:22 AM CHEMICAL DEPENDENCY THERAPIST Gender Identity Not on file Sexual Orientation Not on file Last Filed Vital Signs Vital Sign Reading Time Taken Comments Blood Pressure 138/70 10/27/2024 10:19 AM CHEMICAL DEPENDENCY THERAPIST Pulse 104 10/27/2024 10:19 AM CHEMICAL DEPENDENCY THERAPIST Temperature - - Respiratory Rate - - Oxygen Saturation 96% 10/27/2024 10:19 AM CHEMICAL DEPENDENCY THERAPIST Inhaled Oxygen Concentration - - Weight 95.8 kg (211 lb 1.6 oz) 10/27/2024 10:19 AM CHEMICAL DEPENDENCY THERAPIST Height 160 cm (5' 3 ) 10/27/2024 10:19 AM CHEMICAL DEPENDENCY THERAPIST Body Mass Index 37.39 10/27/2024 10:19 AM CHEMICAL DEPENDENCY THERAPIST Plan of Treatment Not on file Procedures Procedure Name Priority Date/Time Associated Diagnosis Comments COMPREHENSIVE METABOLIC PANEL Routine 11/27/2023 Swelling of both lower extremities POCT LIPID PANEL Routine 11/12/2023 1:37 PM CHEMICAL DEPENDENCY THERAPIST Lipid screening from Last 3 Months or [...] 0 EXTERNAL LAB SCRIBED eGFR in NonAfrican Nigerien 45 45 - 45 EXTERNAL LAB Blood 11/27/2023 us Kameron Rea MD LAB BLOOD ORDERABLES Final Resul t EXTERNAL LAB * POCT lipid panel (11/12/2023 1:37 PM CHEMICAL DEPENDENCY THERAPIST) Cholesterol, POC 212 mg/dL HDL, POC 46 mg/dL Triglycerides, POC 185 mg/dL LDL Cholesterol POC 129 mg/dL Chol/HDL Ratio, POC 2.8 Non-HDL Cholesterol, POC 166 mg/dL Cholesterol Total, POC 212 mg/dL Capillary blood 11/12/2023 1 :37 PM CHEMICAL DEPENDENCY THERAPIST Kameron Rea MD POINT OF CARE TEST ORDERABLES Fi nal Result from Last 3 Months or Most Recently Relevant to Health Maintenance Insurance MEDICARE MEDICARE [employer] SENIOR SUPPLEMENT MEDICARE [facility] Address: [address] [address] [place] [address] Care Teams Baggage Smasher Relationship Specialty Start Date End Date Carrol Mar NP PCP - General Nurse Practitioner 06/18/22
== END 2025-03-31 15:35 | disposition home or self-care (01) ==
DX: Z12.31 Encounter for screening mammogram for malignant neoplasm of breast (principal)
CPT/HCPCS: 77063; 77067